=== PATIENT | male | born 1965 | race Caucasian/White ===

== ENCOUNTER → 2017-01-15 | Outpatient (CLI) | payer BC | END | disposition home or self-care (01) | LOC: RADMRIMAIN 21:27 | PROVIDERS: ATTEND Family Medicine | DX: Z53.9 Procedure and treatment not carried out, unspecified reason (principal) ==

== ENCOUNTER → 2017-01-29 | Outpatient (CLI) | payer BC | LOC: RADMRIMAIN 11:00 | PROVIDERS: ATTEND Family Medicine | DX: Z53.9 Procedure and treatment not carried out, unspecified reason (principal) ==

== ENCOUNTER → 2017-02-09 | Outpatient (CLI) | payer BC ==
--- NOTE | 2017-02-09 22:43 | MR ---
EXAMINATION TYPE: MR cervical spine wo con DATE OF EXAM: 02/09/2017 9:40 PM COMPARISON: NONE HISTORY: severe neck pain for 2 months TECHNIQUE: Multiplanar, multisequence images of the cervical spine were acquired. C2-C3: No disc herniation or canal stenosis. Mild uncovertebral joint hypertrophy and degenerative di sease. Neural foramina patent. C3-C4: Mild degenerative disc disease. There is facet arthropathy and uncovertebral joint hypertrophy with moderate bilateral foraminal encroachment. Mild broad-based disc bulging. No canal stenosis or focal herniation. C4-C5: Degenerative disc disease with a left paracentral focal disc bulge broad-based. Mild effacemen t of thecal sac. No canal stenosis or spinal cord contact. There is facet arthropathy bilaterally and mild bilateral foraminal encroachment greater on the right. C5-C6: Degenerative disc disease with small focal central disc herniation. No spinal cord contact. Fa cet arthropathy noted. Minimal uncovertebral joint hypertrophy. Very mild right-sided foraminal encro achment. C6-C7: Moderate degenerative disc disease with a large central left paracentral disc herniation. Ther e is anterior mild mass effect upon the spinal cord. There is severe left-sided foraminal encroachmen t with suspected nerve root impingement. Facet arthropathy is seen. Mild to moderate right-sided fora manny encroachment. C7-T1: Vertebral body hemangioma but no disc herniation, canal stenosis, or foraminal encroachment. Cervical segments are intact. There is normal alignment. Cervical spinal cord is of normal signal. Craniovertebral junction relationships are within normal limits. IMPRESSION: 1. Large central left paracentral disc herniation with spinal cord compression C6-C7. Severe left-joan ed foraminal encroachment correlate clinically. No diagnostic evidence of compressive myelitis. 2. Small focal central disc herniation C5-C6 with no spinal cord contact or foraminal encroachment. 3. Degenerative disc disease at multiple levels with left paracentral disc bulging at C4-C5 but no ca nal stenosis or spinal cord contact. 4. Degenerative disc disease and hypertrophic changes C3-C4 with moderate bilateral foraminal encroac hment but no canal stenosis.
== END | disposition home or self-care (01) ==
LOC: RADMRIMAIN 21:08
PROVIDERS: ATTEND Family Medicine
DX: M50.31 Other cervical disc degeneration, high cervical region (principal); M50.222 Other cervical disc displacement at C5-C6 level; M48.8X2 Other specified spondylopathies, cervical region
CPT/HCPCS: 72141

== ENCOUNTER 2018-10-26 06:33 | Inpatient (IN) | payer BC ==
[2018-10-26] MEDS ORDERED: HYDROmorphone 1 MG/ML 1 ML SYRINGE IVP STA (06:38)
[2018-10-26] MEDS ORDERED: LIDOCAINE 5% PATCH TOPICAL STA (07:04)
--- NOTE | 2018-10-26 07:14 | ED ---
General Adult HPI - General Chief complaint: Fall Stated complaint: SOB Time Seen by Provider: 10/26/18 07:00 Source: patient, EMS, RN notes reviewed Mode of arrival: EMS Limitations: no limitations - History of Present Illness Initial comments: This is a 53-year-old male who presents emergency Department complaining of right-sided rib pain as well as shortness of breath or cough. Patient states about a week ago he fell and broke a couple ribs. Patient states he has become more more short of breath and the pain is become worse today went to [facility] [place] last night and they noted that he had large pleural effusion and probable pneumonia on the right side and they sent him to our facility. Patient was started on antibiotics however they did not heparinize him even though his troponin was 0.2. Patient denies any anterior chest pain. Patient denies having had a fever. Patient does state he was a little chilled earlier. Patient states the biggest problem is shortness of breath and pain. Patient denies any abdominal pain patient denies nausea vomiting diarrhea. Patient denies lightheadedness dizziness or near syncopal episode. Patient denies any numbness weakness. Patient denies a headache. Patient denies any swelling to legs or calf tenderness. Patient did receive antibiotics prior to arrival. - Related Data Home Medications Medication Instructions Recorded Confirmed Acetaminophen [Tylenol Extra 1,000 mg PO Q6HR PRN 10/26/18 10/26/18 Strength] Atorvastatin [Lipitor] 20 mg PO HS 10/26/18 10/26/18 Celecoxib [CeleBREX] 200 mg PO HS 10/26/18 10/26/18 Cyclobenzaprine [Flexeril] 10 mg PO DAILY PRN 10/26/18 10/26/18 Fenofibrate 160 mg PO DAILY 10/26/18 10/26/18 Multivit-Min/FA/Lycopen/Lutein 1 tab PO DAILY 10/26/18 10/26/18 [Centrum Silver Tablet] [place]-3 Fatty Acids/Fish Oil [Fish 2 cap PO BID 10/26/18 10/26/18 Oil 1,000 mg Softgel] Pioglitazone [Actos] 30 mg PO DAILY 10/26/18 10/26/18 Venlafaxine HCl [Effexor] 75 mg PO QAM 10/26/18 10/26/18 buPROPion XL [Wellbutrin Xl] 150 mg PO DAILY 10/26/18 10/26/18 metFORMIN HCL 1,000 mg PO BID 10/26/18 10/26/18 Allergies Allergy/AdvReac Type Severity Reaction Status Date / Time No Known Allergies Allergy Verified 10/26/18 08:09 Review of Systems ROS Statement: Those systems with pertinent positive or pertinent negative responses have been documented in the HPI. ROS Other: All systems not noted in ROS Statement are negative. Past Medical History Past Medical History: Diabetes Mellitus, Hypertension Past Surgical History: Orthopedic Surgery Additional Past Surgical History / Comment(s): rotator cuff, part of tongue cut out (oral cancer). Smoking Status: Current every day smoker Past Drug Use History: Marijuana General Exam - General Exam Comments Initial Comments: GENERAL: Patient is well-developed and well-nourished. Patient is nontoxic and well- hydrated and is in mild distress. ENT: Neck is soft and supple. No significant lymphadenopathy is noted. Oropharynx is clear. Moist mucous membranes. Neck has full range of motion without eliciting any pain. EYES: The sclera were anicteric and conjunctiva were pink and moist. Extraocular movements were intact and pupils were equal round and reactive to light. Eyelids were unremarkable. PULMONARY: Patient has diminished breath sounds in the right base. CARDIOVASCULAR: There is a regular rate and rhythm without any murmurs gallops or rubs. Right- sided ribs are tender. ABDOMEN: Soft and nontender with normal bowel sounds. No palpable organomegaly was noted. There is no palpable pulsatile mass. SKIN: Skin is clear with no lesions or rashes and otherwise unremarkable. NEUROLOGIC: Patient is alert and oriented x3. Cranial nerves II through XII are grossly intact. Motor and sensory are also intact. Normal speech, volume and content. Symmetrical smile. MUSCULOSKELETAL: Normal extremities with adequate strength and full range of motion. No lower extremity swelling or edema. No calf tenderness. LYMPHATICS: No significant lymphadenopathy is noted PSYCHIATRIC: Normal psychiatric evaluation. Limitations: no limitations Course Vital Signs 10/26/18 10/26/18 06:40 07:26 Temperature 99.5 F 98.2 F Pulse Rate 128 H 115 H Respiratory 18 20 Rate Blood Pressure 114/71 138/89 O2 Sat by Pulse 96 95 Oximetry Medical Decision Making - Medical Decision Making EKG shows sinus tachycardia at 124 bpm MD interval is 126 QRS is 90 QT interval 320 QTC is 459. Patient's EKG shows no ST segment elevation. I reviewed the x-rays and CAT scan. I spoke with Dr. Sagastume he agreed to admit the patient admitted the patient consult pulmonology. - Lab Data Result diagrams: 10/26/18 06:55 10/26/18 06:55 Lab Results 10/26/18 10/26/18 10/26/18 Range/Units 06:55 06:55 06:55 WBC 14.8 H (3.8-10.6) k/uL RBC 3.96 L (4.30-5.90) m/uL Hgb 12.3 L (13.0-17.5) gm/dL Hct 37.4 L (39.0-53.0) % MCV 94.4 (80.0-100.0) fL MCH 31.0 (25.0-35.0) pg MCHC 32.8 (31.0-37.0) g/dL RDW 12.6 (11.5-15.5) % Plt Count 392 (150-450) k/uL Neutrophils % 80 % Lymphocytes % 13 % Monocytes % 4 % Eosinophils % 1 % Basophils % 0 % Neutrophils # 11.8 H (1.3-7.7) k/uL Lymphocytes # 1.9 (1.0-4.8) k/uL Monocytes # 0.7 (0-1.0) k/uL Eosinophils # 0.1 (0-0.7) k/uL Basophils # 0.0 (0-0.2) k/uL Sodium 141 (137-145) mmol/L Potassium 4.4 (3.5-5.1) mmol/L Chloride 109 H (98-107) mmol/L Carbon Dioxide 21 L (22-30) mmol/L Anion Gap 11 mmol/L BUN 24 H (9-20) mg/dL Creatinine 1.15 (0.66-1.25) mg/dL Est GFR (CKD-EPI)AfAm 83 (>60 ml/min/1.73 sqM) Est GFR (CKD-EPI)NonAf 72 (>60 ml/min/1.73 sqM) Glucose 217 H (74-99) mg/dL Plasma Lactic Acid En (0.7-2.0) mmol/L Calcium 9.1 (8.4-10.2) mg/dL Magnesium 1.7 (1.6-2.3) mg/dL Total Bilirubin 0.6 (0.2-1.3) mg/dL AST 21 (17-59) U/L ALT 33 (21-72) U/L Alkaline Phosphatase 49 (38-126) U/L Total Creatine Kinase 36 L (55-170) U/L CK-MB (CK-2) 2.1 (0.0-2.4) ng/mL CK-MB (CK-2) Rel Index 5.8 Troponin I 0.265 H* (0.000-0.034) ng/mL Total Protein 6.3 (6.3-8.2) g/dL Albumin 3.6 (3.5-5.0) g/dL 10/26/18 Range/Units 07:35 WBC (3.8-10.6) k/uL RBC (4.30-5.90) m/uL Hgb (13.0-17.5) gm/dL Hct (39.0-53.0) % MCV (80.0-100.0) fL MCH (25.0-35.0) pg MCHC (31.0-37.0) g/dL RDW (11.5-15.5) % Plt Count (150-450) k/uL Neutrophils % % Lymphocytes % % Monocytes % % Eosinophils % % Basophils % % Neutrophils # (1.3-7.7) k/uL Lymphocytes # (1.0-4.8) k/uL Monocytes # (0-1.0) k/uL Eosinophils # (0-0.7) k/uL Basophils # (0-0.2) k/uL Sodium (137-145) mmol/L Potassium (3.5-5.1) mmol/L Chloride (98-107) mmol/L Carbon Dioxide (22-30) mmol/L Anion Gap mmol/L BUN (9-20) mg/dL Creatinine (0.66-1.25) mg/dL Est GFR (CKD-EPI)AfAm (>60 ml/min/1.73 sqM) Est GFR (CKD-EPI)NonAf (>60 ml/min/1.73 sqM) Glucose (74-99) mg/dL Plasma Lactic Acid En 2.1 H* (0.7-2.0) mmol/L Calcium (8.4-10.2) mg/dL Magnesium (1.6-2.3) mg/dL Total Bilirubin (0.2-1.3) mg/dL AST (17-59) U/L ALT (21-72) U/L Alkaline Phosphatase (38-126) U/L Total Creatine Kinase (55-170) U/L CK-MB (CK-2) (0.0-2.4) ng/mL CK-MB (CK-2) Rel Index Troponin I (0.000-0.034) ng/mL Total Protein (6.3-8.2) g/dL Albumin (3.5-5.0) g/dL Disposition Clinical Impression: Pleural effusion, Pneumonia, Sepsis Disposition: ADMITTED IP TO THIS HOSP Referrals: Jose Guadalupe Ferreira MD [Primary Care Provider] - 1-2 days Time of Disposition: 08:17
[2018-10-26 07:22] LABS: Basophils % (A) 0 %; Eosinophils # (A) 0.1 k/uL (0-0.7); Eosinophils % (A) 1 %; HCT 37.4 % (39.0-53.0); HGB 12.3 gm/dL (13.0-17.5); Lymphocytes # (A) 1.9 k/uL (1.0-4.8); Lymphocytes % (A) 13 %; MCHC 32.8 g/dL (31.0-37.0); MCV 94.4 fL (80.0-100.0); Mean Platelet Volume 6.7; Monocytes # (A) 0.7 k/uL (0-1.0); Monocytes % (A) 4 %; Neutrophils # (A) 11.8 k/uL (1.3-7.7); Neutrophils % (A) 80 %; Platelet Count 392 k/uL (150-450); RBC 3.96 m/uL (4.30-5.90); RDW 12.6 % (11.5-15.5); WBC 14.8 k/uL (3.8-10.6)
[2018-10-26 07:26] LABS: Albumin 3.6 g/dL (3.5-5.0); Calcium 9.1 mg/dL (8.4-10.2); Magnesium 1.7 mg/dL (1.6-2.3); Potassium 4.4 mmol/L (3.5-5.1); Total Bilirubin 0.6 mg/dL (0.2-1.3); Total Protein 6.3 g/dL (6.3-8.2)
[2018-10-26] MEDS ORDERED: ACETAMINOPHEN TAB 500 MG TAB PO STA (07:32)
[2018-10-26 07:33] LABS: Prothrombin Time 10.9 sec (9.0-12.0)
[2018-10-26 07:48] LABS: Creatine Kinase MB 2.1 ng/mL (0.0-2.4)
[2018-10-26 07:53] LABS: Troponin I 0.265 ng/mL (0.000-0.034)
[2018-10-26] MEDS ORDERED: PNEUMONIA PROTOCOL UTILIZED 1 EACH MISC PO PRN (08:18)
[2018-10-26] MEDS ORDERED: AZITHROMYCIN 500 MG in SODIUM CHLORIDE 0.9% 250 ML IVPB STA (08:18)
[2018-10-26 09:16] VITALS: BMI 40.4
[2018-10-26 09:17] VITALS: RESP 18
[2018-10-26] MEDS ORDERED: Acetaminophen-Codeine 300-30mg TAB PO PRN (09:22)
[2018-10-26] MEDS ORDERED: HYDROmorphone 1 MG/ML 1 ML SYRINGE IVP PRN (09:23)
[2018-10-26] MEDS ORDERED: CYCLOBENZAPRINE 10 MG TAB PO PRN (09:24)
[2018-10-26] MEDS ORDERED: PIOGLITAZONE 30 MG TAB PO SCH (10:00)
[2018-10-26] MEDS ORDERED: FENOFIBRATE 160 MG TAB PO SCH (10:00)
[2018-10-26] MEDS ORDERED: buPROPion XL 150 MG TAB.ER.24H PO SCH (10:00)
[2018-10-26] MEDS ORDERED: VENLAFAXINE HCL ER 75 MG CAP PO SCH (10:00)
[2018-10-26] MEDS ORDERED: metFORMIN 500 MG TAB PO SCH (10:00)
--- NOTE | 2018-10-26 10:12 | XR ---
EXAMINATION TYPE: XR chest 2V DATE OF EXAM: 10/26/2018 COMPARISON: Outside radiographs earlier today HISTORY: 53-year-old male with pleural effusion TECHNIQUE: PA and lateral views FINDINGS: Right heart margin obscured by adjacent pleural parenchymal disease. There is at least a moderate rig ht-sided pleural effusion extending up to the mid chest level. Mild diffuse interstitial prominence. IMPRESSION: Moderate to large right-sided pleural effusion. Underlying atelectasis, consolidation, or mass could easily be obscured by the effusion.
--- NOTE | 2018-10-26 11:16 | P.HPIM ---
History of Present Illness H&P Date: 10/26/18 Chief Complaint: Fall, one week ago at work, shortness of breath, multiple rib fractures This is a 53-year-old male presents to the emergency room complaining of right- sided rib pain shortness of breath. Patient states about a week ago he fell and broke couple of ribs patient states he has become more short of breath and pain are much worse On presentation patient has a large right-sided pleural effusion with hemothorax patient was started on antibiotics patient was not started on heparin. Troponin was 0.2 patient complains of chest pain complains of chills complains of fever right now he is respiratory rate is about 25 with abdominal pain Review of Systems Ears, nose, mouth and throat: Reports as per HPI Cardiovascular: Reports as per HPI, Reports chest pain Respiratory: Reports congestion (Multiple rib fractures, on the right large pleural effusion on the right, probable hemopneumothorax on the right possible empyema) Gastrointestinal: Reports as per HPI Genitourinary: Reports as per HPI Musculoskeletal: Reports as per HPI Integumentary: Reports as per HPI Neurological: Reports as per HPI Psychiatric: Reports as per HPI Past Medical History Past Medical History: Diabetes Mellitus, Hypertension History of Any Multi-Drug Resistant Organisms: None Reported Past Surgical History: Orthopedic Surgery Additional Past Surgical History / Comment(s): rotator cuff, part of tongue cut out (oral cancer). Smoking Status: Former smoker Past Drug Use History: Marijuana Medications and Allergies Home Medications Medication Instructions Recorded Confirmed Type Acetaminophen [Tylenol Extra 1,000 mg PO Q6HR PRN 10/26/18 10/26/18 History Strength] Atorvastatin [Lipitor] 20 mg PO HS 10/26/18 10/26/18 History Celecoxib [CeleBREX] 200 mg PO HS 10/26/18 10/26/18 History Cyclobenzaprine [Flexeril] 10 mg PO DAILY PRN 10/26/18 10/26/18 History Fenofibrate 160 mg PO DAILY 10/26/18 10/26/18 History Multivit-Min/FA/Lycopen/Lutein 1 tab PO DAILY 10/26/18 10/26/18 History [Centrum Silver Tablet] [place]-3 Fatty Acids/Fish Oil [Fish 2 cap PO BID 10/26/18 10/26/18 History Oil 1,000 mg Softgel] Pioglitazone [Actos] 30 mg PO DAILY 10/26/18 10/26/18 History Venlafaxine HCl [Effexor XR] 75 mg PO QAM 10/26/18 10/26/18 History buPROPion XL [Wellbutrin Xl] 150 mg PO DAILY 10/26/18 10/26/18 History metFORMIN HCL 1,000 mg PO BID 10/26/18 10/26/18 History Allergies Allergy/AdvReac Type Severity Reaction Status Date / Time No Known Allergies Allergy Verified 10/26/18 08:09 Physical Exam Osteopathic Statement: *. No significant issues noted on an osteopathic structural exam other than those noted in the History and Physical/Consult. Vitals: Vital Signs Temp Pulse Pulse Resp BP BP Pulse Ox 10/26/18 10:51 18 10/26/18 09:16 97.6 F 120 H 18 142/77 96 10/26/18 08:36 98.1 F 120 H 20 137/78 96 10/26/18 07:26 98.2 F 115 H 20 138/89 95 10/26/18 06:40 99.5 F 128 H 18 114/71 96 Intake and Output 10/25/18 10/26/18 10/26/18 22:59 06:59 14:59 Other: Weight 131.542 kg 131.542 kg General: [Patient awake, alert and oriented times 3. Patient in no acute distress.] HEENT: [PERRL. EOMI. No pharyngeal erythema or exudate.] Neck: [No adenopathy.] Cardiac: [Heart regular in rate and rhythm. No S3. No S4. No clicks, rubs. No murmur.] Lungs: Right-sided rib fractures on chest x-ray large pleural effusion on chest x-ray on the right, tenderness to palpation on the right diminished breath sounds in the right lung base Abdomen: [No mass. No organomegaly. Bowel sounds presnt and normoactive in all 4 quadrants.] Extremes: [No edema no cyanosis no claudication normal pulses] : [] Musculoskeletal: [No joint erythema, edema or tenderness.] Skin: [No rash.] Neurologic: [No lateralizing deficits. CN II - XII grossly intact.] Lymphatic: [No adenopathy.] Results CBC & Chem 7: 10/26/18 06:55 10/26/18 06:55 Labs: Abnormal Lab Results - Last 24 Hours (Table) 10/26/18 10/26/18 10/26/18 Range/Units 06:55 06:55 06:55 WBC 14.8 H (3.8-10.6) k/uL RBC 3.96 L (4.30-5.90) m/uL Hgb 12.3 L (13.0-17.5) gm/dL Hct 37.4 L (39.0-53.0) % Neutrophils # 11.8 H (1.3-7.7) k/uL APTT (22.0-30.0) sec Chloride 109 H (98-107) mmol/L Carbon Dioxide 21 L (22-30) mmol/L BUN 24 H (9-20) mg/dL Glucose 217 H (74-99) mg/dL Plasma Lactic Acid En (0.7-2.0) mmol/L Total Creatine Kinase 36 L (55-170) U/L Troponin I 0.265 H* (0.000-0.034) ng/mL 10/26/18 10/26/18 Range/Units 06:55 07:35 WBC (3.8-10.6) k/uL RBC (4.30-5.90) m/uL Hgb (13.0-17.5) gm/dL Hct (39.0-53.0) % Neutrophils # (1.3-7.7) k/uL APTT 20.0 L (22.0-30.0) sec Chloride (98-107) mmol/L Carbon Dioxide (22-30) mmol/L BUN (9-20) mg/dL Glucose (74-99) mg/dL Plasma Lactic Acid En 2.1 H* (0.7-2.0) mmol/L Total Creatine Kinase (55-170) U/L Troponin I (0.000-0.034) ng/mL Chest x-ray: pending, report reviewed CT scan - chest: image reviewed Assessment and Plan (1) Pleural effusion Current Visit: Yes Status: Acute Code(s): J90 - PLEURAL EFFUSION, NOT ELSEWHERE CLASSIFIED SNOMED Code(s): 78139576 (2) Pneumonia Current Visit: Yes Status: Acute Code(s): J18.9 - PNEUMONIA, UNSPECIFIED ORGANISM SNOMED Code(s): 521299904 Plan: Anticipate transfer [facility] for evaluation and treatment for traumatic fracture of ribs and pleural effusion 1 week ago Probable hemothorax, possible empyema Thoracic surgeon will be required to evaluate and treat this patient Case discussed with Dr. Sesar Clifton DO underground [employer] locator Time with Patient: Greater than 30
--- NOTE | 2018-10-26 11:48 | P.CNPUL ---
History of Present Illness Consult date: 10/26/18 Requesting physician: Benton Sagastume Jr Reason for consult: dyspnea, hypoxemia, abnormal CXR/CT Chief complaint: Shortness of breath with right-sided chest pain History of present illness: This is a very pleasant 53-year-old gentleman who follows with Dr. Ferreira as his primary care physician. He has a history of diabetes mellitus, hyperlipidemia, chronic and ongoing tobacco dependence, marijuana use. 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 He hit his right side of the chest on a hand railing on the way down. He was seen that day in 2 days later by occupational health physician who treated him with House. He had developed increasing shortness of breath with increasing pain and presented to [facility] early this morning. His CAT scan revealed a large right-sided pleural effusion with pneumothorax. He was subsequently transferred here to [facility] for cardiothoracic evaluation. We were also consulted in regarding to the pleural effusion. He is seen today in consultation on the selective care unit. He is awake and alert. He is dyspneic on minimal exertion. He is somewhat diaphoretic. He does have significant right sided chest discomfort on inhalation. He is currently afebrile. He is maintaining O2 saturations in the mid 90s on 2 L/m per nasal cannula. He's tachycardic in the 110s-120s. Blood pressure stable currently. He is tachypneic. White count 14.8. Hemoglobin 12.3. Creatinine 1.15. Lactic acid 2.1. Troponin 0.265. He's been initiated on ceftriaxone and Dilaudid. Review of Systems 14 point review of system was conducted. All negative other than as mentioned in HPI. Past Medical History Past Medical History: Diabetes Mellitus, Hypertension History of Any Multi-Drug Resistant Organisms: None Reported Past Surgical History: Orthopedic Surgery Additional Past Surgical History / Comment(s): rotator cuff, part of tongue cut out (oral cancer). Smoking Status: Former smoker Past Drug Use History: Marijuana Medications and Allergies Home Medications Medication Instructions Recorded Confirmed Type Acetaminophen [Tylenol Extra 1,000 mg PO Q6HR PRN 10/26/18 10/26/18 History Strength] Atorvastatin [Lipitor] 20 mg PO HS 10/26/18 10/26/18 History Celecoxib [CeleBREX] 200 mg PO HS 10/26/18 10/26/18 History Cyclobenzaprine [Flexeril] 10 mg PO DAILY PRN 10/26/18 10/26/18 History Fenofibrate 160 mg PO DAILY 10/26/18 10/26/18 History Multivit-Min/FA/Lycopen/Lutein 1 tab PO DAILY 10/26/18 10/26/18 History [Centrum Silver Tablet] [place]-3 Fatty Acids/Fish Oil [Fish 2 cap PO BID 10/26/18 10/26/18 History Oil 1,000 mg Softgel] Pioglitazone [Actos] 30 mg PO DAILY 10/26/18 10/26/18 History Venlafaxine HCl [Effexor XR] 75 mg PO QAM 10/26/18 10/26/18 History buPROPion XL [Wellbutrin Xl] 150 mg PO DAILY 10/26/18 10/26/18 History metFORMIN HCL 1,000 mg PO BID 10/26/18 10/26/18 History Allergies Allergy/AdvReac Type Severity Reaction Status Date / Time No Known Allergies Allergy Verified 10/26/18 08:09 Physical Exam Vitals: Vital Signs Temp Pulse Pulse Resp BP BP Pulse Ox 10/26/18 10:51 18 10/26/18 09:16 97.6 F 120 H 18 142/77 96 10/26/18 08:36 98.1 F 120 H 20 137/78 96 10/26/18 07:26 98.2 F 115 H 20 138/89 95 10/26/18 06:40 99.5 F 128 H 18 114/71 96 Intake and Output 10/25/18 10/26/18 10/26/18 22:59 06:59 14:59 Other: Weight 131.542 kg 131.542 kg GENERAL EXAM: Alert, obese, in mild respiratory distress with moderate discomfort in the right chest. On 2 L/m per nasal cannula. HEAD: Normocephalic. EYES: Normal reaction of pupils, equal size. NOSE: Clear with pink turbinates. THROAT: No erythema or exudates. NECK: No masses, no JVD. CHEST: No chest wall deformity. LUNGS: Diminished in the right lung base. CVS: S1 and S2 normal with no audible murmur, regular rhythm. ABDOMEN: No hepatosplenomegaly, normal bowel sounds, no guarding or rigidity. SPINE: No scoliosis or deformity SKIN: No rashes CENTRAL NERVOUS SYSTEM: No focal deficits, tone is normal in all 4 extremities. EXTREMITIES: There is no peripheral edema. No clubbing, no cyanosis. Peripheral pulses are intact. Results - Laboratory Findings CBC and BMP: 10/26/18 06:55 10/26/18 06:55 PT/INR, D-dimer PT 10.9 sec (9.0-12.0) 10/26/18 06:55 INR 1.0 (<1.2) 10/26/18 06:55 Abnormal lab findings: Abnormal Labs 10/26/18 10/26/18 10/26/18 06:55 06:55 06:55 WBC 14.8 H RBC 3.96 L Hgb 12.3 L Hct 37.4 L Neutrophils # 11.8 H APTT Chloride 109 H Carbon Dioxide 21 L BUN 24 H Glucose 217 H Plasma Lactic Acid En Total Creatine Kinase 36 L Troponin I 0.265 H* 10/26/18 10/26/18 06:55 07:35 WBC RBC Hgb Hct Neutrophils # APTT 20.0 L Chloride Carbon Dioxide BUN Glucose Plasma Lactic Acid En 2.1 H* Total Creatine Kinase Troponin I - Diagnostic Findings Chest x-ray: image reviewed CT scan - chest: image reviewed Assessment and Plan Assessment: Impression: #1 Acute hypoxic respiratory failure secondary to a large right-sided suspected hemothorax status post fall with trauma. #2 Right-sided chest pain secondary to above. #3 Chronic tobacco dependence. #4 Leukocytosis secondary to above. 5 Lactic acidosis secondary to above. #5 Mild troponin leak. #7 Diabetes mellitus. #8 Hyperlipidemia. Plan: The patient was seen and evaluated by Dr. Clifton. Chest x-ray and CAT scans were reviewed. The patient will be transferred to [facility] for a thoracic surgeon consultation regarding the suspected hemothorax. This may be loculated as it has been 1 week post trauma. In the interim, we will add incentive spirometer. Add bronchodilators 4 times a day and when necessary, continue antibiotics. Dr. Clifton did discuss the plan with Dr. Sagastume who will arrange transfer. I, the cosigning physician, performed a history & physical examination of the patient. Lungs sounds in addition the right lung base Maintaining good O2 saturations in the 90s on liters per minute per nasal cannula. I discussed the assessment and plan of care with my nurse practitioner, Maggie Baca. I attest to the above consultation as dictated by her. Time with Patient: Greater than 30
[2018-10-26 11:50] LABS: Glucose,Whole Blood 169 mg/dL (75-99)
[2018-10-26] MEDS ORDERED: MULTIVITAMINS, THERA 1 EACH TAB PO SCH (12:00)
[2018-10-26 13:27] VITALS: BP 138/76; PULSE 141; TEMP 97.8
[2018-10-26] MEDS ORDERED: IPRATROPIUM-ALBUTEROL 3 ML NEB INHALATION SCH (16:00)
[2018-10-26] MEDS ORDERED: ATORVASTATIN 20 MG TAB PO SCH (21:00)
[2018-10-26] MEDS ORDERED: MELOXICAM 7.5 MG TAB PO SCH (21:00)
== END 2018-10-26 14:11 | disposition short-term general hospital (02) | DRG 199 ==
LOC: EC 06:33 → 3SCARD 08:18
PROVIDERS: ADMIT Family Medicine; ATTEND Family Medicine
DX: S27.1XXA Traumatic hemothorax, initial encounter (principal); J18.9 Pneumonia, unspecified organism; J96.01 Acute respiratory failure with hypoxia; J86.9 Pyothorax without fistula; E87.2 Acidosis; J90 Pleural effusion, not elsewhere classified; E11.9 Type 2 diabetes mellitus without complications; E78.5 Hyperlipidemia, unspecified; Z87.891 Personal history of nicotine dependence; I10 Essential (primary) hypertension; Y99.0 Civilian activity done for income or pay; Z79.84 Long term (current) use of oral hypoglycemic drugs; Z79.899 Other long term (current) drug therapy; Z85.810 Personal history of malignant neoplasm of tongue; D72.829 Elevated white blood cell count, unspecified; R74.8 Abnormal levels of other serum enzymes; W19.XXXS Unspecified fall, sequela; S22.49XS Multiple fractures of ribs, unspecified side, sequela
CPT/HCPCS: 36415; 71046; 80053; 82550; 82553; 83605; 83735; 84484; 85025; 85610; 85730; 87040; 93005; 99285

== ENCOUNTER → 2019-05-06 | Outpatient (CLI) | payer BC ==
--- NOTE | 2019-05-06 09:09 | CT ---
EXAMINATION TYPE: CT brain wo con DATE OF EXAM: 05/06/2019 COMPARISON: None HISTORY: Headache behind the left eye for [address] DLP: [address] of the brain was performed. The ventricles, basal cisterns and sulci overlying the cerebral convexities demonstrate normal appear ance. There is no evidence for intracranial hemorrhage or sulcal effacement. Abnormal attenuation within the brain parenchyma. No mass effects are seen.No midline shift. Osseous calvarium is intact. If symptoms persist consider MRI. IMPRESSION: 1. No distinct abnormality appreciated.
== END | disposition home or self-care (01) ==
LOC: RADCTMAIN 08:22
PROVIDERS: ATTEND Family Medicine
DX: R42 Dizziness and giddiness (principal); R51 Headache
CPT/HCPCS: 70450

== ENCOUNTER → 2021-06-13 | Outpatient (CLI) | payer OTHER | END | disposition home or self-care (01) | LOC: LABWHC1 12:39 | PROVIDERS: ATTEND Internal Medicine Interventional Cardiology | DX: Z01.818 Encounter for other preprocedural examination (principal); I25.118 Atherosclerotic heart disease of native coronary artery with other forms of angina pectoris; Z20.822 Contact with and (suspected) exposure to COVID-19 | CPT/HCPCS: U0003; C9803 ==